=== PATIENT | male | born 2000 | race Caucasian/White ===

== ENCOUNTER 2024-12-05 18:31 | Emergency (ER) | payer OTHER, SELFPAY ==
[2024-12-05 18:33] VITALS: BP 107/67; PULSE 64; RESP 16; TEMP 36.6; O2SAT 98; BMI 24.3
--- NOTE | 2024-12-05 18:52 | EX.ED.DYSGE1 ---
HPI <Dr. Ntaalya Hernandez DO - Last Filed: 12/05/24 19:49> History of Present Illness Chief Complaint: ETOH Intox Detail of Chief Complaint: Chin laceration Informant: patient and spouse/S.O. Narrative Narrative: Patient presents to the emergency department with girlfriend who brought him in because of a chin laceration this afternoon. Patient was walking on sidewalk when he tripped and fell and hit his chin on the sidewalk. No loss of consciousness. Girlfriend says that he got up right away. He has been drinking today. He denies neck pain. Has no medical history. States his last tetanus shot was about a year and a half ago. PFSH <Dr. Natalya Hernandez DO - Last Filed: 12/05/24 19:49> PFSH Medical History no medical history Allergy/AdvReac Type Severity Reaction Status Date / Time No Known Allergies Allergy Verified 12/05/24 18:32 Social History Smoking Status: Current every day smoker tobacco type: smokeless tobacco ROS <Dr. Natalya Hernandez DO - Last Filed: 12/05/24 19:49> ROS ED Review of Systems ROS Unobtainable: other Constitutional Constitutional ED: Reports lethargy; Denies chills, fever(s), sweats or weight loss Eyes Eyes: Denies blurry vision, change in vision or diplopia ENT ENT ED: Denies rhinorrhea or sore throat Cardiovascular Cardiovascular: Denies chest pain, orthopnea or racing heartbeat Respiratory/Chest Respiratory/Chest: Denies cough, dyspnea, dyspnea on exertion, orthopnea or sputum Gastrointestinal Gastrointestinal: Denies abdominal pain, diarrhea, nausea or vomiting Genitourinary Genitourinary ED: Denies dysuria, hematuria or urinary frequency Musculoskeletal Musculoskeletal: Reports other Details: Chin laceration ; Denies arthralgias, back pain, myalgias or neck pain Integumentary Denies abscess, Abrasions or rash Neurologic Neurologic: Denies headache(s) or weakness Psychiatric Psychiatric: Denies anxiety, depression or suicidal thoughts Endocrine Endocrinology: Denies polydipsia, polyphagia or polyuria Hematologic/Lymphatic Hematologic/Lymphatic: Denies easy bleeding, easy bruising or lymphadenopathy Allergic/Immunologic Allergic/Immunologic ED: Denies mouth swelling, tongue swelling or urticaria EXAM <Dr. Natalya Hernandez DO - Last Filed: 12/05/24 19:49> Physical Exam Const Vital Signs: 12/05/24 18:33 Temperature 97.9 F Temperature Source Temporal Pulse Rate 64 Respiratory Rate 16 Blood Pressure 107/67 Blood Pressure Mean 80 Pulse Ox 98 Oxygen Delivery Method Room Air Positive well nourished and well developed General Appearance ED: well developed and NAD HEENT Reports TM's clear and moist mucous membranes HEENT Narrative: 2 cm laceration to the right chin slightly gaping. No bony tenderness on exam. No malocclusion on exam. No other injuries noted. normocephalic and atraumatic; Negative for trauma or tenderness Tympanic Membrane ED: Yes TM's clear Eyes PERRL and EOMs intact bilaterally General Eye ED: Negative for pale conjunctiva or scleral icterus Neck no lymphadenopathy, supple and no JVD General: Negative for tenderness Chest Wall inspection of chest normal and palpation of chest normal Chest: Negative for tenderness Resp normal respiratory effort and clear to auscultation bilaterally Effort and Inspection: Negative for respiratory distress or pain with movement Auscultation: Negative for rhonchi, wheezes or diminished lung sounds Cardio regular rate, regular rhythm, S1 normal heart sound, S2 normal heart sound and no murmurs Peripheral Pulses: pulses 2+ throughout GI normal to inspection, nondistended, normoactive bowel sounds, soft to palpation, non-tender, non-distended and no masses Back/Spine no CVA tenderness and no thoracic nor lumbar tenderness Extremity normal to inspection General Extremety ED: Negative for edema General Extremity: Negative for edema Neuro oriented x3, CN's II-XII intact bilaterally, no sensory deficits noted and gait normal Sensorium / Orientation: awake, alert, oriented to person, oriented to place and oriented to time Motor Exam: strength 5/5 throughout and strength abnormal Psych mental status grossly normal Skin no rashes or lesions noted and no wounds <MAMADOU Cagle - Last Filed: 12/05/24 19:46> Physical Exam Const Vital Signs: 12/05/24 18:33 Temperature 97.9 F Temperature Source Temporal Pulse Rate 64 Respiratory Rate 16 Blood Pressure 107/67 Blood Pressure Mean 80 Pulse Ox 98 Oxygen Delivery Method Room Air MDM <Dr. Natalya Hernandez DO - Last Filed: 12/05/24 19:49> [facility] MDM Narrative Medical decision making narrative: Patient presents with his girlfriend for concern about a laceration to his chin. It is mistakenly stated in the nurses note that he was sent here by the [facility] because he was too drunk to stay there as this referred to a different patient not our patient. Please see procedure note for suture laceration. Procedure was performed by physician technical administrative assistant as far as the repair. Patient will be discharged home and advised to follow-up in 5 days for suture removal. Girlfriend will stay with him. Procedures <MAMADOU Cagle - Last Filed: 12/05/24 19:46> Lacerations Laceration: Length: 0.79 in Depth: Sub Q Shape: Linear Prep: Chlorhexadine Laceration repair: Irrigated, Lidocaine and Skin sutures Number of Sutures/Emeterio: 3 Suture Information: Ethilon, Simple and 6-0 Comment: Laceration cleaned with chlorhexidine and saline. Bandage with bacitracin ointment. Discharge Plan Triage Chief Complaint: ETOH Intox ED Midlevel Provider: Cindy Nobles ED Provider: Natalya Hernandez Dx/Rx/DC Orders Clinical Impression: Chin laceration, Alcohol intoxication Instructions: ED Laceration, Chin, Suture or Tape, ED Alcohol Intoxication Primary Care Provider: Aziza Daniel,Out of Referrals: Holland Espitia MD [Med Staff - Dining Room Manager] - 5 Days for suture removal Aziza Daniel,Out of [Primary Care Provider] - Print Language: Urdu Disposition Disposition: Home, Self Care
[2024-12-05] MEDS: Lidocaine 1% (20 ml mdv) 20 ML Vial 4 ML INFILT (19:11)
[2024-12-05 20:13] VITALS: O2SAT 99
[2024-12-05 20:14] VITALS: BP 98/65; PULSE 78; RESP 20; TEMP 36.6; O2SAT 99
== END 2024-12-05 20:14 | disposition home or self-care (01) ==
PROVIDERS: Emergency Provider Emergency Medicine; Visit Provider Emergency Medicine
DX: S01.81XA Laceration without foreign body of other part of head, initial encounter (principal); F10.129 Alcohol abuse with intoxication, unspecified; W01.198A Fall on same level from slipping, tripping and stumbling with subsequent striking against other object, initial encounter; F17.290 Nicotine dependence, other tobacco product, uncomplicated
CPT/HCPCS: 12011; 99284